=== PATIENT | male | born 1985 | race Caucasian/White ===

== ENCOUNTER 2017-01-02 08:15 | Emergency (ER) | payer MEDICAID ==
[~2017-01-02] VITALS: Ht 175.3 cm; Wt 66.0 kg
[2017-01-02] MEDS ORDERED: KEPP500 PO (08:22)
[2017-01-02 08:51] VITALS: BP 122/86
== END 2017-01-02 10:35 | disposition home or self-care (01) ==
LOC: ER 08:30
DX: N47.1 Phimosis (principal); F17.200 Nicotine dependence, unspecified, uncomplicated
CPT/HCPCS: 99281; Z7610